=== PATIENT | male | born 1945 | race Caucasian/White ===

== ENCOUNTER → 2016-10-26 | Emergency (ER) | payer MEDICARE, BC ==
[2016-10-26 17:43] VITALS: BP 129/75
--- NOTE | 2016-10-26 21:04 | ERNOTE ---
Lower Extremity HPI - General Source: patient Exam Limitations: no limitations - Immun/Allergies/Home Medications Immunizations: IMMUNIZATION HX Immunizations Up to Date Yes History of Influenza Vaccine Yes Hx Pneumococcal Vaccination Yes Allergies/Adverse Reactions: Allergies Allergy/AdvReac Type Severity Reaction Status Date / Time No Known Allergies Allergy Verified 10/26/16 17:43 Home Medications: HOME MEDICATIONS Aspirin 325 mg PO DAILY 03/30/13 [Last Taken 03/30/13] Atorvastatin Calcium [Lipitor] 40 mg PO DAILY 03/30/13 [Last Taken 03/30/13] Benazepril HCl 5 mg PO HS 03/30/13 [Last Taken 03/29/13] Benazepril HCl [Benazepril (Lotensin)] 10 mg PO DAILY 03/30/13 [Last Taken 03/30] Meclizine HCl [Antivert] 25 mg PO PRN PRN 03/30/13 [Last Taken Unknown] Metformin HCl [Metformin HCl ER] 500 mg PO BID 03/30/13 [Last Taken 03/30/13] Metoprolol Tartrate [Lopressor] 50 mg PO BID 03/30/13 [Last Taken 03/30/13] Nitroglycerin [Nitrostat] 0.4 mg SL Q5MIN PRN 03/30/13 [Last Taken Unknown] Omeprazole [Prilosec Generic] 20 mg PO DAILY 03/30/13 [Last Taken 03/30/13] Sitagliptin Phosphate [Januvia] 100 mg PO DAILY 03/30/13 [Last Taken 03/30/13] - History of Present Illness Narrative: Patient was seen at 18:50 He reports that he has had intermittent left knee pain for about ten days - Patient's Past Medical History Patient History - Medical: Diabetes Type 2, GERD Patient History - Cardiac/Respiratory: Hypertension, Hyperlipidemia Patient History - Cancer: No Hx of Cancer Patient History - Surgical Procedures: Appendectomy, Cataracts, Cardiac stent Patient History - Other: None - Social History Living Situations: home Abuse History: No History of abuse Psych History: No pertinent hx Smoking Status: Former smoker Alcohol Use: none Drug Use: none - Immunizations Immunizations Up to Date: Yes Hx Pneumococcal Vaccination: Yes History of Influenza Vaccine: Yes ED Progress - Vital Signs Patient's Vital Signs:: I have reviewed the patient's vital signs. Vital Signs: Vital Signs 10/26/16 17:37 Temperature 36.6 C Pulse Rate 74 Respiratory 16 Rate Blood Pressure 129/75 O2 Sat by Pulse 93 Oximetry - X-Ray X-Ray #1 X-Ray: knee - no acute change Interpretation: Interp. by me - Progress/Reassessment Chief Complaint: Lower Extremity Pain/ Injury Progress Note-Subjective: 10/26/16 19:45 discussed Xray findings with patient and family, most likely cartilage problems suggested follow up with ortho Departure Clinical Impression: Knee pain, left Qualifiers: Chronicity: acute Qualified Code(s): M25.562 - Pain in left knee - Departure Disposition: Home self-care Condition: Good Referrals: Kellie Ribeiro MD [Primary Care Provider] -
--- OUTSIDE RECORDS SUMMARY | 2016-10-27 10:20 | XMS REPORT | Continuity of Care Document ---
:1945 Author Organization [facility] ([facility]) Address [address] [place] [address] Phone [phone] Care Team Providers Name Role Phone Kellie Ribeiro Primary Care Provider [phone] Source Comments This disclosure is being made pursuant to the Care Everywhere program, applicable federal and state laws, and may not contain all informaitonavailable regarding this patient.[facility] ([facility]) Active Allergies and Adverse Reactions No Known Allergies Current Medications Prescription Sig. Disp. Refills Start Date End Date Status aspirin 325 mg Take 325 mg by mouth Active tablet daily. Indications: PREVENTION OF TRANSIENT ISCHEMIC ATTACKS, CAD nitroglycerin 0.4 place 1 Tab under the 25 Tab 2 09/06/2012 Active mg SL tablet tongue every 5 minutes as needed. Indications: ANGINA omeprazole 20 mg Take 1 Cap by mouth 30 Cap 11 06/26/2013 Active extended release daily. Indications: capsule GASTROESOPHAGEAL REFLUX sitaGLIPtin Take 1 Tab by mouth 30 Tab 11 07/23/2013 Active (JANUVIA) 100 mg daily. Indications: tablet TYPE 2 DIABETES MELLITUS metoPROLol tartrate Take 1 Tab by mouth 2 60 Tab 11 11/07/2013 Active 50 mg tablet times daily. Indications: HYPERTENSION benazepril 5 mg Take 1 Tab by mouth 30 Tab 0 05/07/2014 Active tablet every evening. Indications: HYPERTENSION benazepril 10 mg Take 1 Tab by mouth 30 Tab 2 05/07/2014 Active tablet Every morning. Indications: HYPERTENSION glipiZIDE 10 mg Take 10 mg by mouth 07/14/2016 Active tablet daily. metFORMIN 1,000 mg Take 1,000 mg by mouth 07/02/2016 Active tablet 2 times daily. atorvastatin 80 mg Take 0.5 tablets (40 30 tablet 11 07/23/2016 Active tablet mg total) by mouth daily. isosorbide Take 1 tablet (60 mg 30 tablet 11 07/23/2016 Active mononitrate 60 mg total) by mouth every CR tablet morning. Active Problems Problem Noted Date Diabetes mellitus type 2, uncontrolled 07/11/2012 HTN (hypertension) 07/11/2012 Hyperlipidemia 07/11/2012 GERD (gastroesophageal reflux disease) 07/11/2012 Coronary atherosclerosis of [place] coronary artery 12/26/2006 Resolved Problems Problem Noted Date Resolved Date Coronary atherosclerosis of unspecified type of vessel, 04/18/2008 07/18/2015 [place] or graft Chest pain, unspecified 12/26/2006 07/18/2015 Social History Tobacco Use Types Packs/Day Years Used Date Former Smoker Smokeless Tobacco: Never Used Last Filed Vital Signs Vital Sign Reading Time Taken Blood Pressure 112/60 07/23/2016 10:31 AM MICROBIOLOGY TECHNOLOGIST Pulse 78 07/23/2016 10:31 AM MICROBIOLOGY TECHNOLOGIST Temperature 37.2 C (99 F) 04/10/2016 5:34 PM CDT Respiratory Rate 18 07/23/2016 10:31 AM MICROBIOLOGY TECHNOLOGIST Height 1.651 m (5' 5") 07/23/2016 10:31 AM MICROBIOLOGY TECHNOLOGIST Weight 90.266 kg (199 lb) 07/23/2016 10:31 AM MICROBIOLOGY TECHNOLOGIST Body Mass Index 33.12 07/23/2016 10:31 AM MICROBIOLOGY TECHNOLOGIST Oxygen Saturation 95% 04/10/2016 7:31 PM CDT Plan of Care Date Type Specialty Providers Description 07/08/2017 Appointment [facility], Chief Comp : Patient MD Reported Reason For [address] [place] [address] [phone] (Fax) Health Maintenance Due Date Last Done Comments HCV Screening 1945 Hepatitis B Vaccine (1 of 3 - 1945 Primary Series) Tdap Vaccine 12/28/1958 DIABETIC: Microalbumin 12/28/1965 Td Vaccine 12/28/1965 Colonoscopy 12/28/1997 Prostate Cancer Screening 12/28/1997 Zoster Vaccine 2007 DIABETIC: Hemoglobin A1C 10/27/2011 04/26/2011, 12/03/2001 DIABETIC: Cholesterol 04/26/2012 04/26/2011, Additional history exists 05/05/2009, 06/24/2003 Diabetic: Hdl 04/26/2012 04/26/2011, Additional history exists 05/05/2009, 06/24/2003 Diabetic: Ldl 04/26/2012 04/26/2011, Additional history exists 05/05/2009, 06/24/2003 DIABETIC: Triglycerides 04/26/2012 04/26/2011, Additional history exists 05/05/2009, 06/24/2003 DIABETIC: Foot Exam 08/01/2012 DIABETIC: Retinal Eye Exam 08/01/2012 Pneumococcal Vaccine (1 of 2 12/28/2012 - PCV13) Influenza Vaccine: Seasonal 04/05/2016 (#1) Results from Last 3 Months Not on file
== END | disposition home or self-care (01) ==
LOC: ER 16:56
DX: M25.562 Pain in left knee (principal); E11.9 Type 2 diabetes mellitus without complications; K21.9 Gastro-esophageal reflux disease without esophagitis; I10 Essential (primary) hypertension; E78.5 Hyperlipidemia, unspecified